=== PATIENT | male | born 2000 | race Caucasian/White ===

== ENCOUNTER 2018-08-18 16:53 | Emergency (ER) | payer MEDICAID ==
[~2018-08-18] VITALS: Ht 193 cm; Wt 79.4 kg
[2018-08-18 17:00] VITALS: BP 157/82
== END 2018-08-18 22:58 | disposition home or self-care (01) ==
LOC: ER 16:53
DX: S62.306A Unspecified fracture of fifth metacarpal bone, right hand, initial encounter for closed fracture (principal); S62.302A Unspecified fracture of third metacarpal bone, right hand, initial encounter for closed fracture; W50.0XXA Accidental hit or strike by another person, initial encounter; Y93.71 Activity, boxing; Y99.8 Other external cause status; Y92.89 Other specified places as the place of occurrence of the external cause
CPT/HCPCS: 29125; 73120